=== PATIENT | male | born 1985 | race Caucasian/White ===

== ENCOUNTER 2018-02-24 15:44 | Emergency (ER) | payer SELFPAY ==
[~2018-02-24] VITALS: Ht 172.7 cm; Wt 86.0 kg
[2018-02-24 16:03] VITALS: BP 145/77
[2018-02-24] MEDS ORDERED: DEXAMETHASONE 10 MG/ML VIAL IM ONE (16:30)
== END 2018-02-24 19:19 | disposition home or self-care (01) ==
LOC: ER 15:44
DX: M10.9 Gout, unspecified (principal); F17.200 Nicotine dependence, unspecified, uncomplicated
CPT/HCPCS: 96372; 99283; J1100

== ENCOUNTER 2018-05-10 10:46 | Emergency (ER) | payer SELFPAY ==
[~2018-05-10] VITALS: Ht 172.7 cm; Wt 86.0 kg
[2018-05-10] MEDS ORDERED: HYDROCODONE/ACETAMINOPHEN 5/325MG TABLET PO ONE (11:45)
[2018-05-10] MEDS ORDERED: KETOROLAC 60MG/2ML VIAL IM ONE (11:45)
[2018-05-10] MEDS ORDERED: ONDANSETRON 4MG ODT PO ONE (11:45)
[2018-05-10 12:13] VITALS: BP 142/81
== END 2018-05-10 12:15 | disposition home or self-care (01) ==
LOC: ER 10:46
DX: M10.071 Idiopathic gout, right ankle and foot (principal); I10 Essential (primary) hypertension; E66.9 Obesity, unspecified; Z68.28 Body mass index [BMI] 28.0-28.9, adult
CPT/HCPCS: 96372; 99283; J1885; Q0162

== ENCOUNTER 2018-08-31 17:09 | Emergency (ER) | payer OTHER ==
[~2018-08-31] VITALS: Ht 172.7 cm; Wt 86.0 kg
[2018-08-31] MEDS ORDERED: KETOROLAC 60MG/2ML VIAL IM ONE (22:00)
[2018-08-31 22:38] VITALS: BP 133/75
== END 2018-08-31 22:40 | disposition home or self-care (01) ==
LOC: ER 18:13
DX: M10.9 Gout, unspecified (principal); M10.471 Other secondary gout, right ankle and foot
CPT/HCPCS: 96372; 99283; J1885

== ENCOUNTER 2019-12-26 13:25 | Emergency (ER) | payer OTHER ==
[~2019-12-26] VITALS: Ht 172.7 cm; Wt 87.0 kg
[2019-12-26] MEDS ORDERED: KETOROLAC 30MG/ML VIAL IM ONE (14:15)
[2019-12-26 14:30] VITALS: BP 128/76
== END 2019-12-26 14:30 | disposition home or self-care (01) ==
LOC: ER 13:25
DX: M79.674 Pain in right toe(s) (principal); M10.9 Gout, unspecified; Z91.14 Patient's other noncompliance with medication regimen
CPT/HCPCS: 96372; 99283; J1885

== ENCOUNTER 2020-02-10 15:19 | Emergency (ER) | payer OTHER ==
[~2020-02-10] VITALS: Ht 175.3 cm; Wt 88.0 kg
[2020-02-10] MEDS ORDERED: IBUPROFEN 600MG TABLET PO ONE (16:45)
[2020-02-10 17:09] VITALS: BP 120/65
== END 2020-02-10 17:36 | disposition home or self-care (01) ==
LOC: ER 15:19
DX: M10.9 Gout, unspecified (principal); Z98.890 Other specified postprocedural states
CPT/HCPCS: 99283

== ENCOUNTER 2020-08-01 13:33 | Emergency (ER) | payer OTHER ==
[~2020-08-01] VITALS: Ht 175.3 cm; Wt 86.0 kg
[2020-08-01] MEDS ORDERED: INDO75CA3 MT (14:13)
[2020-08-01] MEDS ORDERED: COLC0.6C3 MT (14:13)
[2020-08-01] MEDS ORDERED: COLCHICINE 0.6MG TABLET PO ONE (14:15)
[2020-08-01 14:44] VITALS: BP 132/82
[2020-08-01] MEDS ORDERED: KETOROLAC 60MG/2ML VIAL IM ONE (14:45)
== END 2020-08-01 14:34 | disposition home or self-care (01) ==
LOC: ER 13:33
DX: M10.9 Gout, unspecified (principal)
CPT/HCPCS: 96372; 99283; J1885

== ENCOUNTER 2020-08-11 19:20 | Emergency (ER) | payer OTHER ==
[~2020-08-11] VITALS: Ht 175.3 cm; Wt 84.0 kg
[~2020-08-11 19:20] MED LIST: COLC0.6C3 MT; INDO75CA3 MT
[2020-08-11] MEDS ORDERED: COLCHICINE 0.6MG TABLET PO ONE (20:00)
[2020-08-11] MEDS ORDERED: KETOROLAC 60MG/2ML VIAL IM ONE (20:00)
[2020-08-11] MEDS ORDERED: INDO50CA98 PO (20:01)
[2020-08-11] MEDS ORDERED: TETRACAINE 0.5% OPHTH DROPS 4ML LEFTEYE ONE (20:15)
[2020-08-11] MEDS ORDERED: FLUORESCEIN SODIUM 1MG/STRIP LEFTEYE ONE (20:15)
[2020-08-11] MEDS ORDERED: ACETAMINOPHEN WITH CODEINE 300/30MG TABLET PO ONE (20:15)
[2020-08-11 20:38] VITALS: BP 140/80
== END 2020-08-11 22:32 | disposition home or self-care (01) ==
LOC: ER 19:20
DX: M10.9 Gout, unspecified (principal)
CPT/HCPCS: 96372; 99283; J1885

== ENCOUNTER 2020-10-26 16:33 | Emergency (ER) | payer OTHER ==
[~2020-10-26] VITALS: Ht 172.7 cm; Wt 88.0 kg
[~2020-10-26 16:33] MED LIST changes: +INDO50CA98 PO
[2020-10-26 16:40] VITALS: BP 155/83
== END 2020-10-26 18:58 | disposition left against medical advice (07) ==
LOC: ER 16:33
DX: R68.89 Other general symptoms and signs (principal); Z53.21 Procedure and treatment not carried out due to patient leaving prior to being seen by health care provider

== ENCOUNTER 2021-02-23 04:57 | Emergency (ER) | payer OTHER ==
[~2021-02-23] VITALS: Ht 172.7 cm; Wt 87.0 kg
[2021-02-23] MEDS ORDERED: INDO75CA3 MT (07:04)
[2021-02-23] MEDS ORDERED: COLC0.6C3 MT (07:04)
[2021-02-23] MEDS ORDERED: KETOROLAC 15MG/ML VIAL IM ONE (08:00)
[2021-02-23 08:02] VITALS: BP 126/75
== END 2021-02-23 08:03 | disposition home or self-care (01) ==
LOC: ER 04:57
DX: M13.841 Other specified arthritis, right hand (principal); M10.9 Gout, unspecified
CPT/HCPCS: 96372; 99283; J1885